=== PATIENT | female | born 1995 ===

== ENCOUNTER 2020-07-01 23:17 | Emergency (ER) | payer SELFPAY ==
--- NOTE | 2020-07-01 23:24 | NUR ---
Patient BIBA c/o SOB, hx asthma; wants an inhaler. Upon attempting to triage, she became angry and started yelling. Patient states, "I'm just going to leave. All I wanted was oxygen." Patient walked out; refused to sign AMA.
== END 2020-07-01 23:26 | disposition left against medical advice (07) ==
LOC: ED 23:20
DX: R06.00 Dyspnea, unspecified (principal); R06.02 Shortness of breath; R05 Cough; J45.909 Unspecified asthma, uncomplicated; Z72.9 Problem related to lifestyle, unspecified
CPT/HCPCS: 99283